=== PATIENT | male | born 1990 | race Caucasian/White ===

== ENCOUNTER 2017-05-23 00:24 | Inpatient (IN) | payer OTHER ==
[~2017-05-23] VITALS: Ht 168 cm; Wt 77.0 kg
[2017-05-23 00:48] LABS: BILIRUBIN NEGATIVE (NEGATIVE); BLOOD TRACE-LYSED Ery/uL (NEGATIVE); CLARITY CLEAR (CLEAR); COLOR STRAW (YELLOW); GLUCOSE (U) NORMAL (NORMAL); KETONE (U) NEGATIVE (NEGATIVE); LEUKOCYTES NEGATIVE Leu/uL (NEGATIVE); NITRITE NEGATIVE (NEGATIVE); PROTEIN TRACE (LOW) mg/dL (NEGATIVE); SPECIFIC GRAVITY <=1.005 (1.001-1.030); UROBILINOGEN 0.2 mg/dL (0.2-1.0)
[2017-05-23 00:53] LABS: SPERM PRESENT; SQUAMOUS EPITHELIAL CELLS RARE; URINARY RBC RARE; URINARY WBC RARE
[2017-05-23 01:44] LABS: BASOPHIL 0.2 % (0-2); EOSINOPHIL 0.7 % (0-5); HGB 16.1 g/dl (13.2-18.0); LYMPHOCYTE 16.8 % (15-48); MCH 31.3 pg (25.0-31.0); MCV 89.5 fL (78.0-100.0); MONOCYTE 14.2 % (0-12); MPV 12.7 fL (6.0-9.5); NEUTROPHIL 68.1 % (41-80); PLT 128 K/uL (150-400); RBC 5.14 M/uL (4.70-6.00); RDW 12.4 % (11.5-14.0); WBC 8.3 K/uL (4.0-10.5)
[2017-05-23 02:03] LABS: ALBUMIN 4.2 g/dL (3.5-5.0); BILIRUBIN - TOTAL 0.3 mg/dL (0.1-1.0); GLOBULIN (CALCULATION) 2.9 g/dL (2.2-4.2); POTASSIUM 3.8 mmol/L (3.5-5.1); TOTAL PROTEIN 7.1 g/dL (6.4-8.3)
[2017-05-23 02:57] LABS: CREATININE 2.9 mg/dL (0.7-1.2); POTASSIUM 3.7 mmol/L (3.5-5.1)
[2017-05-23 11:51] LABS: FOLIC ACID (SERUM) 6.8 ng/mL (4.4-31.0)
[2017-05-24 06:09] LABS: CREATININE 2.2 mg/dL (0.7-1.2); POTASSIUM 4.2 mmol/L (3.5-5.1)
[2017-05-24 20:13] LABS: AMPHETAMINES NEGATIVE (NEGATIVE); BARBITURATES NEGATIVE (NEGATIVE); BENZODIAZEPINES NEGATIVE (NEGATIVE); COCAINE NEGATIVE (NEGATIVE); MARIJUANA (THC) NEGATIVE (NEGATIVE); METHADONE NEGATIVE (NEGATIVE); TRICYCLIC ANTIDEPRESSANT NEGATIVE (NEGATIVE)
[2017-05-25 09:02] LABS: HCT 41.1 % (42.0-52.0); HGB 14.2 g/dl (13.2-18.0); MCH 30.5 pg (25.0-31.0); MCHC 34.5 g/dL (32.0-36.0); MCV 88.2 fL (78.0-100.0); MPV 13.1 fL (6.0-9.5); RBC 4.66 M/uL (4.70-6.00); WBC 9.5 K/uL (4.0-10.5)
[2017-05-25 09:31] LABS: ALBUMIN 3.3 g/dL (3.5-5.0); BILIRUBIN - TOTAL 0.2 mg/dL (0.1-1.0); CREATININE 1.3 mg/dL (0.7-1.2); GLOBULIN (CALCULATION) 2.6 g/dL (2.2-4.2); POTASSIUM 3.7 mmol/L (3.5-5.1); TOTAL PROTEIN 5.9 g/dL (6.4-8.3)
[2017-05-26 06:24] LABS: CREATININE 1.2 mg/dL (0.7-1.2); POTASSIUM 3.9 mmol/L (3.5-5.1)
[2017-05-26 11:36] LABS: CREATININE 1.1 mg/dL (0.7-1.2); MAGNESIUM 1.61 mg/dL (1.40-2.10); POTASSIUM 4.2 mmol/L (3.5-5.1)
== END 2017-05-26 14:45 | disposition home or self-care (01) | DRG 392 ==
LOC: FER 00:24 → FMS 03:13
PROVIDERS: Emergency Medicine; Surgery; ADMIT Internal Medicine
PROC: 0DB78ZX Excision of Stomach, Pylorus, Via Natural or Artificial Opening Endoscopic, Diagnostic (ICD-10-PCS; principal; 2017-05-25 10:00)
DX: K29.00 Acute gastritis without bleeding (principal); N17.9 Acute kidney failure, unspecified; R00.1 Bradycardia, unspecified; F39 Unspecified mood [affective] disorder; K21.9 Gastro-esophageal reflux disease without esophagitis; F41.1 Generalized anxiety disorder; F32.9 Major depressive disorder, single episode, unspecified; R01.1 Cardiac murmur, unspecified; R30.0 Dysuria
CPT/HCPCS: 36415; 74000; 76705; 76770; 78227; 80048; 80053; 80305; 81001; 82607; 82746; 83690; 83735; 84145; 84443; 85025; 85651; 86038; 86140; 86431; 87040; 88305; 93005; A9537; J1885; J2405; J2704; J2805; J3420